=== PATIENT | male | born 1960 | race Caucasian/White ===

== ENCOUNTER 2019-11-28 10:12 | Inpatient (IN) | payer OTHER ==
[~2019-11-28] VITALS: Ht 172.7 cm; Wt 77.1 kg
[2019-11-28 10:15] VITALS: BP 140/76
--- NOTE | 2019-11-28 10:30 | NUR ---
GAVEASA 81 MG 4 TABLETS, AND 4000 UNITS OF HEPARIN FROM STEMI BOX, PER DR. DOWD ORDERS
[2019-11-28 10:38] VITALS: BP 140/76
[2019-11-28 10:47] LABS: ABSOLUTE NEUTROPHILS 4.2 thou/uL (1.4-8.2); BASOPHILS 0.8 % (0.0-2.0); EOSINOPHILS 2.3 % (0.0-3.0); HEMATOCRIT 47.9 % (42.0-52.0); HEMOGLOBIN 16.6 gm/dL (14.0-18.0); LYMPHOCYTES 44.3 % (24.0-44.0); MCH 30.9 pg (26.0-34.0); MCHC 34.6 g/dL (28.0-37.0); MCV 89.4 fL (80.0-100.0); MONOCYTES 7.9 % (1.0-8.0); PLATELET COUNT 274 thou/uL (150-400); POLYS 44.7 % (36.0-66.0); RBC 5.35 mil/uL (4.50-6.00); RDW 13.5 % (10.5-14.5); WBC 9.3 thou/uL (4.0-11.0)
[2019-11-28 10:56] LABS: ANION GAP 10 mmol/L (7-16); BUN 15 mg/dL (7-18); CALCIUM 9.3 mg/dL (8.5-10.1); CHLORIDE 102 mmol/L (98-107); CO2 26 mmol/L (21-32); CREATININE 1.4 mg/dL (0.7-1.3); GLUCOSE 164 mg/dL (74-106); POTASSIUM 3.7 mmol/L (3.5-5.1); SODIUM 138 mmol/L (136-145)
[2019-11-28 10:59] LABS: APTT 24.8 Seconds (24.5-32.8); PROTIME 10.5 Seconds (9.3-11.4)
[2019-11-28 11:06] LABS: MAGNESIUM 1.9 mg/dL (1.8-2.4); SGOT 20 U/L (15-37); SGPT 27 U/L (30-65); TOTAL BILIRUBIN 0.6 mg/dL (0.2-1.0); TOTAL PROTEIN 7.3 g/dL (6.4-8.2); TROPONIN-I <0.06 ng/mL (<0.06)
--- NOTE | 2019-11-28 13:22 | 2DMMODE ---
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 Room #: 1 Status: routine BSA: 1.91 HR: 83 bpm BP: 165/90 mmHg Rhythm: NSR Other Information Study Quality: Good Indications Dyspnea CAD STEMI 2D Dimensions RVDd: 28.14 mm IVSd: 10.16 (7-11mm) LVOT Diam: 22.65 (18-24mm) LVDd: 45.19 mm PWd: 11.09 (7-11mm) LVDs: 33.18 (25-40mm) Aortic Root: 33.29 mm IVC: 14.00 mm Volumes Left Atrial Volume (Systole) Single Plane 4CH: 24.82 mL Single Plane 2CH: 19.79 mL LA ESV Index: 13.00 mL/m2 Aortic Valve AoV Peak Benson.: 1.26 m/s AO Peak Gr.: 6.36 mmHg LVOT Max P.21 mmHg LVOT Max V: 0.90 m/s [facility] [address] [place] [address] 2 D/M-MODE ECHOCARDIOGRAM Name: BRANNON CASTRO Room #: 160-3 ADM IN M.R.#: [id number] Admission: 11/28/19 Attend Phys: Alan Sarmiento Discharge: Date of : 58 Report #: [id number] [id number] Vmax: 2.86 cm2 Mitral Valve E/A Ratio: 0.6 MV Decel. Time: 205.49 ms MV E Max Benson.: 0.42 m/s MV A Benson.: 0.73 m/s MV PHT: 59.59 ms IVRT: 147.64 ms Pulmonary Valve PV Peak Benson.: 0.90 m/s PV Peak Gr.: 3.26 mmHg Pulmonary Vein P Vein S: 0.46 m/s P Vein A: 0.32 m/s P Vein D: 0.26 m/s P Vein A Dur.: 78.4 msec P Vein S/D Ratio: 1.77 Tricuspid Valve TR Peak Benson.: 2.48 m/s TR Peak Gr.: 24.61 mmHg PA Pressure: 30.00 mmHg Left Ventricle The left ventricle is normal size. There is mild hypokinesis in the basal inferior wall. There is normal left ventricular wall thickness. Left ventricular systolic function is mildly decreased. LVEF is 50%. Mild diastolic dysfunction Right Ventricle The right ventricle is normal size. The right ventricular systolic function is normal. Atria The left atrium size is normal. The right atrium size is normal. Aortic Valve The aortic valve is mildly sclerotic. No aortic regurgitation is present. There is no aortic valvular stenosis. Mitral Valve The mitral valve is normal in structure. There is no mitral valve regurgitation noted. No evidence of mitral valve stenosis. Tricuspid Valve [facility] [address] [place] [address] 2 D/M-MODE ECHOCARDIOGRAM Name: BRANNON CASTRO Room #: 160-3 ADM IN M.R.#: [id number] Admission: 11/28/19 Attend Phys: Alan Sarmiento Discharge: Date of : 58 Report #: [id number] The tricuspid valve is normal in structure. There is trace tricuspid regurgitation. Estimated PAP 30 mmHg. There is no pulmonary hypertension. Pulmonic Valve The pulmonary valve is normal in structure. Trace pulmonic regurgitation. Great Vessels The aortic root is normal in size. IVC is normal in size and collapses >50% with inspiration. Pericardium There is no pericardial effusion. <Conclusion> Left ventricular systolic function is mildly decreased. LVEF is 50%. Hypokinesis base of inferior wall. Mild diastolic dysfunction The aortic valve is mildly sclerotic. No aortic regurgitation or stenosis The mitral valve is normal in structure. No mitral valve regurgitation There is trace tricuspid regurgitation. Estimated pulmonary artery pressure of 30 mmHg. There is no pericardial effusion. <ELECTRONICALLY SIGNED> By: Alex Mcmullen MD, FACC 11/28/19 132 20 20 Alex Mcmullen MD, FACC /INF
[2019-11-28 15:40] VITALS: BP 149/71
[2019-11-28 16:40] VITALS: BP 129/78
[2019-11-28 19:43] VITALS: BP 141/85
[2019-11-28 20:00] VITALS: BP 141/85
--- NOTE | 2019-11-28 20:25 | NUR ---
PT CARE ASSUMED AT 1520. ASSESSMENT CHARTED. MEDICATION CHARTED. PT TO RADIOLOGY AROUND 1845. PT DENIES PAIN.
[2019-11-29] VITALS: BP 123/65
[2019-11-29 00:10] VITALS: BP 123/65
[2019-11-29 01:07] LABS: GLYCOHEMOGLOBIN (HGB A1C) 5.8 % (4.8-5.6)
--- NOTE | 2019-11-29 03:38 | NUR ---
ASSESSMENT DOCUEMENTED.PT BEEN RESTING IN NO ACUTE DISTRESS.A/OX4.VSS.S/P CARDIAC JACK WITH STENT PLACED TO RCA.PT TO HAVE FURTHER INTERVENTIONS POSSIBLE CABG IN 8WEEKS D/T MVD PER CARDIOTHORACIC SURGEON.DENIES CHEST PAIN OR ANY DISTRESS THIS SHIFT.UP AD TED IN THE ROOM.POC IS TO DISCHARGE TO HOME TODAY.
[2019-11-29 04:39] VITALS: BP 123/65
[2019-11-29 06:00] VITALS: BP 114/71
[2019-11-29 08:00] VITALS: BP 108/64
[2019-11-29] MEDS ORDERED: EFFIENT10 MG PO (08:01)
[2019-11-29] MEDS ORDERED: ASPIRIN325 PO (08:01)
[2019-11-29] MEDS ORDERED: CRESTOR40 MG PO (08:01)
[2019-11-29] MEDS ORDERED: LISINOPRIL5 MG PO (08:01)
[2019-11-29] MEDS ORDERED: NITROGLYCERIN0.4 MG SUBLING ×2 (08:01→08:03)
--- NOTE | 2019-11-29 08:14 | NUR ---
ASSUMED CARE OF PT AT SHIFT CHANGE, GOES BY LUIS ALBERTO, DENIES ANY PAIN, POSSIBLE D/C, GAVE EDUCATION ON THIS PROCESS. NEED URING AND MRSA SWAB NOTED. SEE SEPARATE INTERVENTIONS FOR ASSESSMENTS. ENCOURAGED PT TO USE CALL LIGHT FOR ANY NEEDS
--- NOTE | 2019-11-29 08:40 | EKG ---
[facility] [place] [address] ELECTROCARDIOGRAM REPORT Name: VALERY CASTRO Room #: 219-P ADM IN M.R.#: [id number] Admission: 11/28/19 Attend Phys: Alan Saleem Discharge: Date of : 58 Report #: [id number] THIS REPORT FOR: cc: FAM - Family physician unknown FAM - Family physician unknown Alex Mcmullen MD [facility] THIS REPORT FOR: //name// [facility] ED Test Date: 2019-11-28 Test Time: 10:22:02 Pat Name: VALERY CASTRO Department: Room: 219 Gender: M Cottage Master: BANNERRegi : 1960 Requested By: Vasu Rosales Order Number: [id number] MD: Alex Mcmullen Measurements Intervals [place] Rate: 54 P: 74 AL: 268 QRS: 60 QRSD: 105 T: 100 QT: 358 QTc: 340 Interpretive Statements Sinus rhythm Prolonged AL interval Inferior infarct, acute (RCA) ST elevation, consider anterior injury No previous ECG available for comparison Electronically Signed On 11-29-2019 8:39:05 CDT by Alex Mcmullen [email or web address] <ELECTRONICALLY SIGNED> By: Alex Mcmullen MD, FACC 11/29/19 0839 1022 1022 Alex Mcmullen MD, [facility] /EPI
[2019-11-29 12:54] VITALS: BP 108/64
--- NOTE | 2019-11-29 13:23 | NUR ---
NOTED PT'S [employer] CROSS EXCHANGE INSURANCE THIS AM AND SUSPECTED MAY BE OON. CALLED BLUE CARD ELIGIBILITY AND CONFIRMED HIS [facility] POLICY IS OON AT [facility] AND POLICY HAS NO OON BENEFITS. UPDATED AUTH TOOL AND BAR. UPDATED ARMINDA SCHULER, CARDIOLOGY RPG PROGRAMMER PT TO HAVE F/U WITH DR. ANGELO AND ALSO PLANS FOR CABG AFTER DR. MAYBERRY CONSULTED 11/28/19. PLANNED DISCHARGE TODAY. SPOKE WITH PT BY PHONE AND UPDATED TO HIS INSURANCE STATUS AND EMAILED HIM LIST OF IN NETWORK HOSPITALS ([facility] [place]). WORKING TO GET 11/28/19 APPROVED BY CARLOS DRUMMOND PER UR PROCESS.
--- NOTE | 2019-11-29 13:24 | NUR ---
Spoke with patient by phone. Patient resides in independent home. There was notation in medical record that patient was homeless. Patient gave address to casemgr which in turn gave to registration. 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 He is hopeful for discharge today and anticipates no needs from casemgt.
--- NOTE | 2019-11-29 20:01 | HC ---
[facility] [place] [address] CONSULTATION Name: VALERY CASTRO Room #: 219-P [facility] IN M.R.#: [id number] Admission: 11/28/19 Attend Phys: Alan Saleem Discharge: 11/29/19 Date of : 58 Report #: [id number] THIS REPORT FOR: cc: REINA - Family physician unknown FAM - Family physician unknown Jerome Salazar MD ~ CC: REINA unknown Alan Saleem DATE OF SERVICE: 11/28/2019 We were asked by Dr. Saleem to see the patient. HISTORY OF PRESENT ILLNESS: The patient is a 59-year-old with a recent acute coronary syndrome. The patient describes having some chest pain with exertion yesterday that seemed to get better with some rest, but this morning, the patient developed more pain with exertion and this progressed to a severe crushing chest pressure that radiated down the left arm and left the patient somewhat weak and fatigued and short of breath. The patient was able to drive himself to the Emergency Department, however. Acute intervention include cardiac catheterization that showed a 75% distal left main stenosis, 75% proximal LAD stenosis, 80% circumflex stenosis and acute occlusion of the right coronary artery. Dr. Saleem was able to open the right coronary with drug-eluting stents and the patient was quite comfortable afterwards. PAST MEDICAL HISTORY: The patient denies taking any medication at home. He states he was diagnosed as having elevated cholesterol, but has not taken any treatment yet. He denies hypertension and diabetes mellitus. FAMILY HISTORY: Mother is alive. Father at age 87 with COPD, diabetes and heart failure. SOCIAL HISTORY: The patient is . Denies smoking. 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 REVIEW OF SYSTEMS: GENERAL: Denies problems with fever, generalized weakness. EYES: Wears glasses. HEENT: Occasional headache, no vertigo, no hearing problems. RESPIRATORY: Has had recent shortness of breath on exertion. CARDIAC: Acute onset of angina today, improved after the stent. Denies palpitations. ENDOCRINE: No goiter, no tremor. GASTROINTESTINAL: No nausea, vomiting, diarrhea, blood. [facility] [address] [address] CONSULTATION Name: VALERY CASTRO Room #: 219-P DIS IN M.R.#: [id number] Admission: 11/28/19 Attend Phys: Alan Saleem Discharge: 11/29/19 Date of : 58 Report #: [id number] GENITOURINARY: Admits to urinary frequency. No blood. NEUROLOGIC: No motor or sensory dysfunction. MUSCULOSKELETAL: No bone or joint complaints. SKIN: No rash or infection. IMMUNOLOGIC: No lupoid rash. PSYCHIATRIC: No depression, anxiety. PHYSICAL EXAMINATION: CONSTITUTIONAL: The patient is lying in bed, post-cardiac catheterization. VITAL SIGNS: Blood pressure is 140/76, heart rate 55, temperature 36.4. HEENT: No scleral icterus, no arcus. NECK: No mass, no bruit. CHEST: Clear to auscultation. HEART: Rhythm regular, no murmur. ABDOMEN: Soft. EXTREMITIES: No clubbing, cyanosis or edema, 2+ dorsalis pedis pulses. No obvious saphenous vein problems. MUSCULOSKELETAL: No bone or joint asymmetry or deformity. NEUROLOGIC: No motor or sensory dysfunction. SKIN: No rash or infection. PSYCHIATRIC: Oriented x 3, appropriate with a good sense of humor. ASSESSMENT: The patient has important left main and right coronary lesions and the right coronary was treated acutely, however the threatening left-sided anatomy remained to be treated. I have recommended coronary artery bypass surgery. Risks and details of this were discussed. Risks include but are not limited to bleeding, infection, anesthesia risks, heart and lung problems, stroke and . Options and alternatives were reviewed. Because the patient has a drug-eluting stent, I suspect we will need to keep him on Plavix up until the time of surgery. We may need to readmit the patient 2 or 3 days before surgery for heparin drip to bridge over. We can check a P2Y12 activity at a later date. The patient understands all of this and wishes to proceed, but timing is to be arranged. Thank you for the consult. <ELECTRONICALLY SIGNED> By: Jerome Salazar MD 11/29/192000 1530 1907 Jerome Salazar MD /nt
--- NOTE | 2019-11-30 13:07 | CATHLAB ---
[facility] [address] [place] [address] INVASIVE PROCEDURE REPORT Name: VALERY CASTRO Room #: 219-P DIS IN M.R.#: [id number] Admission: 11/28/19 Attend Phys: Alan Saleem Discharge: 11/29/19 Date of : 58 Report #: [id number] THIS REPORT FOR: cc: REINA - Family physician unknown REINA - Family physician unknown Alan Saleem MD ~ APPROVED REPORT Study performed: 11/28/2019 10:31:54 Patient Details Patient Status: ED Room #: The patient is a 59 year-old male Event Personnel Alan Saleem Tennis Ball Coverer Hand, Keyana Aragon RN RN, Kalina Olguin RTR, Tavo Siddiqui Roberta Monitor, Shauna Romero RN RN, Jaspreet Shannon RTR X-Ray Tech Procedures Performed Art Access - R femoral artery* Left Heart Cath w/or w/o Coronaries [id number] [facility] ANNETTE Place w/wo Plasty Single RCA 009666 61860 Initial Mod Sed Same Phys/QHP Gr5y 899857 77368 Mod Sed Same Phys/QHP Ea 360078 Hemostasis w/ Mynx Indication STEMI (>6 hrs to = 12 hrs), Chest pain Procedure Narrative The Right Groin^ was infiltrated with 1% Lidocaine subcutaneous anesthesia. A PINNACLE 6FR Sheath #[id number] sheath was inserted into the RFA 6F^. Coronary angiography was performed using coronary diagnostic catheters. The right coronary system was accessed and visualized with a JR4 catheter. The left coronary system was accessed and visualized with a JL4 catheter. The left ventricle was accessed and visualized with a ANGLE PIG catheter. Left ventriculogram was performed in 30 degree projection. There was no hematoma. Intraoperative Conscious Sedation Sedation start time: 1038 Case end Time: 1135 Fluoro Time: 8.58 minutes Dose: DAP 8026.70 cGycm2 1195 mGy [facility] [place] [address] INVASIVE PROCEDURE REPORT Name: MATTHEWYOVANIKAITLIN Room #: 219-P [facility] IN .R.#: [id number] Admission: 11/28/19 Attend Phys: Alan Sarmiento Discharge: 11/29/19 Date of : 58 Report #: [id number] Contrast Type and Amount: Omnipaque 1,225 ml Diagnostic Cath Left Main Left main is of normal origin caliber bifurcates into left anterior cingulate circumflex. The proximal and mid portions appear to be without significant issues the distal left main tapers to approximately 70 to 75% stenosis. There is evidence of epicardial calcifications noted on fluoroscopy. LAD Small caliber type III vessel which in its proximal portion has 60 to 70% lesion and then reconstitutes itself with sequential 50 to 60% lesion until the midportion of the mid LAD where it proceeds with only luminal irregularities towards the apex and terminates as a bifurcating vessel. Diagonal 1 Moderate caliber vessel normal origin bifurcates early into 2 branches. He has luminal irregularities courses along the anterolateral wall of free of high-grade disease Diagonal 2 Small insignificant caliber vessel Circumflex Moderate caliber vessel which courses in the AV groove posteriorly giving rise to marginal branches The first is a diminutive size vessel without high-grade lesions. The circumflex continues on gives rise to a second marginal branch beyond which the terminal portion of the circumflex has a high-grade lesions as it proceeds to posterior wall branch which is small in size. OM1 Small insignificant caliber vessel OM2 Small caliber vessel without high-grade lesions noted proximally tapers rapidly towards the apex OM3 Small caliber vessel with proximal lesions identified Right Coronary Moderate caliber vessel normal origin which is completely occluded in its proximal portion. Post dilatation and stenting the vessel is a dominant vessel of large caliber which has a marginal branch to the right ventricle which is free of high-grade disease. And continues to the crux of the heart were posterior ascending artery and posterior lateral wall branches arise. Beyond the distal stent there is a 50% lesion and continues to the crux of the hardware there is sequential moderate lesions identified. The posterior descending artery arises the small caliber vessel. The distal right coronary has a moderate ostial lesion and proceeds towards the apex is a moderate caliber vessel R PDA Small caliber bifurcating vessel without high-grade disease in its course Left Ventriculography Left Ventriculography was not performed. Hemodynamics The aortic pressure is 231/77 mmHg with a mean of 139 mmHg. The left [facility] [address] [place] [address] INVASIVE PROCEDURE REPORT Name: VALERY CASTRO Room #: 219-P DIS IN M.R.#: [id number] Admission: 11/28/19 Attend Phys: Alan Sarmiento Discharge: 11/29/19 Date of : 58 Report #: [id number] ventricular pressure is 181/11 mmHg with a mean of mmHg. The left ventricular end diastolic pressure is 28 mmHg. PCI Technique The right coronary artery was imaged with a standard guide. Following termination of the total occlusion a 0.014 wire was then utilized and advanced distal beyond the lesion. Utilizing a 2.5 mm balloon the distal portion of the lesion in the proximal portion of the dilated. The wire demonstrated the presence of KALA II flow from KALA 0 flow. Post dilatation with the percutaneous angioplasty balloon a 2.5 x 22 mm ANNETTE stent was then positioned distally and deployed inflated to 16 kristie. Subsequent to this the department balloon was removed and a second stent 2.5 x 15 was then placed proximally and multiple post deployment dilatations of both stents were performed to taper proximal portion to the [place] vessel. Post procedure flow was KALA-3 there was no loss of side branches embolization intraluminal thrombus noted. Patient was tolerated procedure well and there were no complications PCI Technique Lesion Percutaneous coronary intervention was performed on the proximal right coronary artery. A LAUNCHER 6FR JR 4 #[id number] Guide Catheter was used to engage the RCA ostium. A Luge Wire (J) .014 X 182CM #[id number] Interventional Guidewire was used to cross the lesion. BALLOON DILATION A Balloon catheter Sprinter OTW 2.5 x 15 #[id number] was inserted and inflated up to 5.00atm for 9seconds. Additional Inflation: 6.00atm for 11seconds. Additional Inflation: 6.00atm for 15seconds. STENT DEPLOYMENT A stent RESOLUTE ROSELYN RX 2.5 X 22 #[id number] was inserted and inflated up to 12.kristie for 10seconds. 2ND Stent placed prox. to 1st (Resolute Onylx 2.5x15. Deployed at 12 kristie for 13 sec/min. Addl: inflations 18 stm for 11 sec/min. and 12 kristie for 12 sec/min. Conclusion 1. Coronary artery disease severe multivessel involving the distal left main and a totally occluded right coronary artery 2. Abnormal hemodynamics with elevated left ventricle end-diastolic pressures 3. Successful percutaneous revascularization and ANNETTE stent deployment to the right coronary artery Recommendations Cardiac Risk Reduction Program [facility] [address] [place] [address] INVASIVE PROCEDURE REPORT Name: VALERY CASTRO Room #: 219-P [facility] IN .R.#: [id number] Admission: 11/28/19 Attend Phys: Alan Sarmiento Discharge: 11/29/19 Date of : 58 Report #: [id number] Aggressive Medical Therapy Following a appropriate time course of asymptomatic and medical management post ANNETTE stenting consideration for aortocoronary bypass grafting of the left anterior descending and left circumflex secondary to distal left main disease is planned. Consultation with cardiothoracic surgery will be performed prior to discharge to arrange and set up timing of procedure. <ELECTRONICALLY SIGNED> By: Alan Saleem MD 11/30/19 1306 1306 130 Alan Saleem MD /INF
--- NOTE | 2019-11-30 22:42 | H ---
[facility] [place] [address] HISTORY AND PHYSICAL Name: VALERY CASTRO Room #: 219-P DIS IN M.R.#: [id number] Admission: 11/28/19 Attend Phys: Alan Saleem Discharge: 11/29/19 Date of : 58 Report #: [id number] THIS REPORT FOR: cc: REINA - Family physician unknown REINA - Family physician unknown Alan Saleem MD ~ CC: REINA unknown Alan Saleem DATE OF SERVICE: 11/28/2019 REASON FOR CONSULTATION: Acute inferior wall myocardial infarction. HISTORY OF PRESENT ILLNESS: This is a very pleasant 59-year-old gentleman who has a known history of dyslipidemia, but otherwise active, presented to the Emergency Room complaining of shortness of breath and discomfort down the left arm. The patient states he has been short of breath for numerous days on and off, but no discomfort in the chest or the neck or the back or the arm has been described until today. He presented to the Emergency Room. An ECG demonstrated the presence of an inferior wall myocardial infarction, which was acute. He does exercise daily and eats fairly well. He thought that yesterday's exercise was "too much for him" and overdid with the development of the shortness of breath. He rested and it resolved and did not seek any further attention until this morning when developed the shortness of breath when he was moving heavy objects around and developed some diaphoresis with these, discomfort in the left arm. PAST MEDICAL HISTORY: Significant for: Dyslipidemia, on no statins at all, although was prescribed here this past week. ALLERGIES: MORPHINE, WHICH CAUSES HIM TO BE SHORT OF BREATH. SOCIAL HISTORY: The patient is . Consumes alcohol socially. Does not use drugs. Does exercise regularly. Tries to follow a sensible diet, but does not count fat grams. PAST SURGICAL HISTORY: Significant for no major surgical procedures. LABORATORY DATA: Noted and reviewed in the chart. REVIEW OF SYSTEMS: Except for symptoms previously mentioned and those commensurate with comorbid state, the 10-point review of system is negative. PHYSICAL EXAMINATION: GENERAL: Well-developed, well-nourished male, resting comfortably, in no acute distress. [facility] [address] [place] [address] HISTORY AND PHYSICAL Name: VALERY CASTRO Room #: 219-P [facility] IN M.R.#: [id number] Admission: 11/28/19 Attend Phys: Alan Saleem Discharge: 11/29/19 Date of : 58 Report #: [id number] VITAL SIGNS: Blood pressure 140/76, temperature is 36.4, respirations are 20-24, pulse is 55-60 and regular. HEENT: Normocephalic, atraumatic. Pupils are equal, round, reactive to light and accommodation. Extraocular muscles are intact. Sclerae and conjunctivae are anicteric. NECK: JVD is normal. Carotid upstrokes are bilaterally symmetrical. No bruits are heard. No thyromegaly. No lymphadenopathy. LUNGS: Clear to auscultation. No wheezes, rhonchi or crackles. No CVA tenderness. CARDIAC: Demonstrates a regular rhythm. Normal first and second heart sounds. No ventricular or atrial gallops, no rubs noted. No murmurs. No lifts or heaves, PMI normal. ABDOMEN: Soft, nontender, nondistended. Normal bowel sounds. EXTREMITIES: Without cyanosis, clubbing or edema. Distal pulses are intact. DTR symmetrical. NEUROLOGIC: Cranial nerves 2-12 are grossly normal and symmetrical. PSYCHIATRIC: Alert, oriented with normal affect. SKIN: Warm and dry. Electrocardiogram, acute inferior wall myocardial infarction, sinus rhythm, first-degree AV block. IMPRESSION: 1. Acute inferior wall myocardial infarction. Risks and alternatives to medical and invasive treatment were discussed with the patient. Initially discussed medical management, but after emphasis of the percent success rates and he agreed to proceed to angiography. The risks, complications and alternatives to cardiac catheterization, selective coronary angiography, percutaneous revascularization were discussed with the patient; he voices understanding and wishes to proceed. 2. Dyslipidemia. The patient's total cholesterol was 268 last week, the fractionation is not available to me. He was prescribed a statin, which he will proceed with outpatient, rosuvastatin as well as discussion and handout for the [employer] step 1 diet. 3. Degenerative joint disease, dealt with [id number] analgesics. <ELECTRONICALLY SIGNED> By: Alan Saleem MD 11/30/19 2242 1634 1707 Alan Saleem MD /nt
== END 2019-11-29 13:42 | disposition home or self-care (01) | DRG 247 ==
LOC: ER 10:12 → 2N 10:38 → ER 10:38 → TBACV 11:21 → 2N 11:21
PROVIDERS: Emergency Medicine; Physician Assistant; ADMIT Internal Medicine; ATTEND Internal Medicine
DX: I21.19 ST elevation (STEMI) myocardial infarction involving other coronary artery of inferior wall (principal); E78.5 Hyperlipidemia, unspecified; M19.90 Unspecified osteoarthritis, unspecified site; I25.10 Atherosclerotic heart disease of native coronary artery without angina pectoris; I10 Essential (primary) hypertension; Z88.6 Allergy status to analgesic agent; Z83.3 Family history of diabetes mellitus; Z83.6 Family history of other diseases of the respiratory system; Z79.899 Other long term (current) drug therapy
CPT/HCPCS: 10081

== ENCOUNTER 2020-05-12 09:22 | Emergency (ER) | payer OTHER ==
[~2020-05-12] VITALS: Ht 180.3 cm; Wt 86.2 kg
[~2020-05-12 09:22] MED LIST: ASPIRIN325 PO; CRESTOR40 MG PO; EFFIENT10 MG PO; LISINOPRIL5 MG PO; NITROGLYCERIN0.4 MG SUBLING
[2020-05-12 10:38] LABS: HEMOGLOBIN 15.4 gm/dL (14.0-18.0); MCH 30.7 pg (26.0-34.0); MCHC 34.2 g/dL (28.0-37.0); MCV 89.9 fL (80.0-100.0); RDW 12.6 % (10.5-14.5); WBC 7.5 thou/uL (4.0-11.0)
[2020-05-12 10:42] LABS: ANION GAP 6 mmol/L (7-16); BUN 15 mg/dL (7-18); CALCIUM 9.7 mg/dL (8.5-10.1); CHLORIDE 105 mmol/L (98-107); CO2 30 mmol/L (21-32); CREATININE 1.2 mg/dL (0.7-1.3); GLUCOSE 141 mg/dL (74-106); POTASSIUM 4.4 mmol/L (3.5-5.1); SODIUM 141 mmol/L (136-145)
[2020-05-12 10:44] LABS: APTT 23.6 Seconds (24.5-32.8); PROTIME 10.2 Seconds (9.3-11.4)
[2020-05-12 10:50] LABS: TROPONIN-I <0.06 ng/mL (<0.06)
[2020-05-12 12:00] VITALS: BP 131/78
--- NOTE | 2020-05-14 07:30 | EKG ---
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: : 1960 Requested By: Dyllan Franco Order Number: [id number] MD: Franklin Qureshi Measurements Intervals Maple Rate: 72 P: 48 TX: 175 QRS: -21 QRSD: 90 T: -28 QT: 375 QTc: 411 Interpretive Statements Sinus rhythm Probable left atrial enlargement Inferior infarct, age indeterminate Compared to ECG 11/28/2019 10:22:02 First degree AV block no longer present ST (T wave) deviation no longer present Myocardial infarct finding still present Electronically Signed On 05-14-2020 7:30:20 [employer] by Franklin Qureshi [email or web address] <ELECTRONICALLY SIGNED> By: Franklin Qureshi MD, FACC 05/14/2030 6 6 Franklin Qureshi MD, FAC /EPI
== END 2020-05-12 12:00 | disposition home or self-care (01) ==
LOC: ER 09:22
PROVIDERS: Emergency Medicine
DX: R07.89 Other chest pain (principal); E78.5 Hyperlipidemia, unspecified; I25.2 Old myocardial infarction; Z79.82 Long term (current) use of aspirin; Z79.899 Other long term (current) drug therapy; Z88.5 Allergy status to narcotic agent